=== PATIENT | female | born 1985 | race Hispanic/Latino ===

== ENCOUNTER 2022-01-03 17:15 | Emergency (ER) | payer BC, MEDICAID, OTHER ==
[~2022-01-03] VITALS: Ht 157.5 cm; Wt 70.8 kg
[2022-01-03 17:49] LABS: BASOPHILS % (AUTO) 0.2 % (0.0-5.0); EOSINOPHILS % (AUTO) 0.4 % (0.0-8.0); HEMATOCRIT 39.3 % (36-48); LYMPHOCYTES % (AUTO) 15.6 % (21.0-51.0); MEAN CORPUSCULAR HEMOGLOBIN 26.8 pg (27.0-33.0); MEAN CORPUSCULAR HGB CONC 32.1 g/dL (32.0-36.0); MEAN CORPUSCULAR VOLUME 83.4 fL (79-99); MONOCYTES % (AUTO) 5.9 % (3.0-13.0); NEUTROPHILS % (AUTO) 77.4 % (40.0-77.0); PLATELET COUNT (AUTO) 315 K/uL (130-400); RED BLOOD CELL COUNT(AUTO) 4.71 MIL/uL (4.00-5.50); RED CELL DISTRIBUTION WIDTH 13.1 % (11.0-15.5); WHITE BLOOD COUNT (AUTO) 16.6 K/uL (4.8-10.8)
[2022-01-03 17:56] LABS: APPEARANCE,URINE Cloudy (CLEAR); BILIRUBIN,URINE Negative (NEGATIVE); COLOR,URINE Yellow (YELLOW); GLUCOSE, URINE (UA) Negative (NEGATIVE); KETONES,URINE Negative (NEGATIVE); LEUKOCYTE ESTERASE ,URINE Moderate (NEGATIVE); NITRATE,URINE Negative (NEGATIVE); OCCULT BLOOD,URINE Negative (NEGATIVE); PROTEIN,URINE Trace mg/dL (NEGATIVE)
[2022-01-03] MEDS ORDERED: MORPHINE 2 MG SYG IVP ONE (18:00)
[2022-01-03] MEDS ORDERED: MAG/ALUM/SIMETH 30 ML UDCUP PO ONE ×2 (18:00)
[2022-01-03] MEDS ORDERED: FAMOTIDINE 20MG TAB PO ONE ×2 (18:00)
[2022-01-03] MEDS ORDERED: PROMETHAZINE HCL 25 MG/ML 1ML AMPULE IM ONE ×2 (18:00)
[2022-01-03] MEDS ORDERED: DICYCLOMINE HCL 10 MG/5 ML ML PO ONE ×2 (18:00)
[2022-01-03] MEDS ORDERED: 0.9%NACL 1000ML 1,000 ML IV ONE (18:00)
[2022-01-03] MEDS ORDERED: ONDANSETRON 4MG INJ IVP ONE (18:00)
[2022-01-03] MEDS ORDERED: LIDOCAINE HCL 2% VISCOUS 15 ML UDCUP PO ONE ×2 (18:00)
[2022-01-03 18:01] LABS: HCG,QUAL RESULT NEGATIVE (NEGATIVE)
[2022-01-03 18:24] LABS: ALBUMIN 4.1 g/dL (3.5-5.0); BILIRUBIN,TOTAL 0.4 mg/dL (0.2-1.0); CREATININE 0.7 mg/dL (0.5-1.5); TOTAL PROTEIN, SERUM 8.6 g/dL (6.0-8.3)
[2022-01-03 18:30] LABS: RBC,URINE 0-1 /HPF (0-1)
[2022-01-03 18:31] LABS: BACTERIA,URINE Few /HPF (None Seen); MUCUS,URINE Rare LPF (None Seen); SQUAMOUS EPITHELIAL CELL,UR Moderate /HPF (0-2)
[2022-01-03] MEDS ORDERED: DICY20TA2 PO (19:58)
[2022-01-03] MEDS ORDERED: FAMO-136 PO (19:58)
[2022-01-03 20:03] VITALS: BP 110/63
[2022-01-03 21:58] LABS: POTASSIUM 4.1 mmol/L (3.5-5.1)
== END 2022-01-03 20:09 | disposition home or self-care (01) ==
LOC: EDH 17:15
DX: K80.20 Calculus of gallbladder without cholecystitis without obstruction (principal); Z79.899 Other long term (current) drug therapy; Z98.890 Other specified postprocedural states
CPT/HCPCS: 36415; 76705; 80053; 81001; 81025; 83690; 84484; 85025; 87088; 96361; 96372; 96374; 96375; 99285; J2405; J2550; J7030

== ENCOUNTER 2022-05-16 02:15 | Emergency (ER) | payer OTHER ==
[~2022-05-16] VITALS: Ht 157.5 cm; Wt 72.6 kg
[~2022-05-16 02:15] MED LIST: DICY20TA2 PO; FAMO-136 PO
[2022-05-16] MEDS ORDERED: ONDANSETRON 4MG INJ ONE (02:40)
[2022-05-16] MEDS ORDERED: KETOROLAC 30MG VIAL (30MG/ML) ONE (02:40)
[2022-05-16] MEDS ORDERED: 0.9%NACL 1000ML 1,000 ML IV ONE ×2 (02:40→03:00)
[2022-05-16 02:45] LABS: BASOPHILS % (AUTO) 0.4 % (0.0-5.0); EOSINOPHILS % (AUTO) 1.1 % (0.0-8.0); HEMATOCRIT 32.8 % (36-48); LYMPHOCYTES % (AUTO) 29.8 % (21.0-51.0); MEAN CORPUSCULAR HEMOGLOBIN 25.9 pg (27.0-33.0); MEAN CORPUSCULAR HGB CONC 31.4 g/dL (32.0-36.0); MEAN CORPUSCULAR VOLUME 82.4 fL (79-99); MONOCYTES % (AUTO) 8.7 % (3.0-13.0); NEUTROPHILS % (AUTO) 59.6 % (40.0-77.0); PLATELET COUNT (AUTO) 294 K/uL (130-400); RED BLOOD CELL COUNT(AUTO) 3.98 MIL/uL (4.00-5.50); RED CELL DISTRIBUTION WIDTH 13.4 % (11.0-15.5); WHITE BLOOD COUNT (AUTO) 11.3 K/uL (4.8-10.8)
[2022-05-16 02:54] LABS: APPEARANCE,URINE CLEAR (CLEAR); BILIRUBIN,URINE NEGATIVE (NEGATIVE); GLUCOSE, URINE (UA) NEGATIVE (NEGATIVE); KETONES,URINE NEGATIVE (NEGATIVE); LEUKOCYTE ESTERASE ,URINE 75 Leu/uL (NEGATIVE); NITRATE,URINE NEGATIVE (NEGATIVE); OCCULT BLOOD,URINE SMALL (NEGATIVE); PROTEIN,URINE NEGATIVE (NEGATIVE); UROBILINOGEN,URINE 0.2 mg/dL (0.2-1.0)
[2022-05-16 02:56] LABS: COLOR,URINE YELLOW (YELLOW); HCG,QUALITATIVE URINE NEGATIVE (NEGATIVE)
[2022-05-16 02:58] LABS: ALBUMIN 3.3 g/dL (3.5-5.0); CREATININE 0.7 mg/dL (0.5-1.5); POTASSIUM 4.1 mmol/L (3.5-5.1)
[2022-05-16] MEDS ORDERED: ONDANSETRON 4MG INJ IVP ONE (03:00)
[2022-05-16] MEDS ORDERED: KETOROLAC 30MG VIAL (30MG/ML) IVP ONE (03:00)
[2022-05-16 03:05] LABS: BACTERIA,URINE RARE /HPF (None Seen); MUCUS,URINE RARE LPF (None Seen); SQUAMOUS EPITHELIAL CELL,UR MOD /HPF (0-2)
[2022-05-16 03:49] VITALS: BP 131/72
[2022-05-16] MEDS ORDERED: DICY20TA2 PO (04:17)
== END 2022-05-16 04:25 | disposition home or self-care (01) ==
LOC: EDH 02:15
DX: K80.20 Calculus of gallbladder without cholecystitis without obstruction (principal); Z79.899 Other long term (current) drug therapy; Z98.890 Other specified postprocedural states
CPT/HCPCS: 99284; 96374; 76705; 96361; 96375; 80053; 83690; 85025; 87088; 81001; 81025; 36415; J7030; J2405; J1885

== ENCOUNTER 2022-05-27 07:28 | Day surgery (SDC) | payer OTHER ==
[2022-05-23 14:40] LABS: BASOPHILS % (AUTO) 0.5 % (0.0-5.0); EOSINOPHILS % (AUTO) 1.2 % (0.0-8.0); HEMATOCRIT 35.5 % (36-48); LYMPHOCYTES % (AUTO) 31.5 % (21.0-51.0); MEAN CORPUSCULAR HEMOGLOBIN 26.3 pg (27.0-33.0); MEAN CORPUSCULAR HGB CONC 31.5 g/dL (32.0-36.0); MEAN CORPUSCULAR VOLUME 83.3 fL (79-99); MONOCYTES % (AUTO) 8.6 % (3.0-13.0); NEUTROPHILS % (AUTO) 57.9 % (40.0-77.0); PLATELET COUNT (AUTO) 288 K/uL (130-400); RED BLOOD CELL COUNT(AUTO) 4.26 MIL/uL (4.00-5.50); RED CELL DISTRIBUTION WIDTH 13.6 % (11.0-15.5); WHITE BLOOD COUNT (AUTO) 8.6 K/uL (4.8-10.8)
[2022-05-23 15:00] LABS: ALBUMIN 3.7 g/dL (3.5-5.0); CREATININE 0.7 mg/dL (0.5-1.5); TOTAL PROTEIN, SERUM 7.7 g/dL (6.0-8.3)
[2022-05-26 08:45] VITALS: BP 120/71
[2022-05-27] VITALS (16 sets, daily range): BP systolic 111–145; BP diastolic 56–80
[~2022-05-27] VITALS: Ht 157.5 cm; Wt 73.9 kg
[~2022-05-27 07:28] MED LIST changes: +BUPIVACAINE/PF 0.25% 30ML VIAL IJ ONE; +BUPIVACAINE/PF 0.5% 30ML VIAL ONE; -FAMO-136 PO
[2022-05-27] MEDS: CEFAZOLIN SODIUM 1 GM VIAL IVP SCH ×2 (08:00→10:35)
[2022-05-27] MEDS ORDERED: LACTATED RINGERS 1000ML 1,000 ML IV ONE (08:22)
[2022-05-27] MEDS ORDERED: PROPOFOL 10 MG/ML 20ML VIAL IV ONE (09:22)
[2022-05-27] MEDS ORDERED: LIDOCAINE PF 100MG/5ML (2%) SYRINGE 5ML ONE (09:22)
[2022-05-27] MEDS ORDERED: EPHEDRINE SULFATE 50 MG/ML AMPULE ONE (09:22)
[2022-05-27] MEDS ORDERED: MIDAZOLAM HCL 1 MG/ML 2ML VIAL ONE (09:26)
[2022-05-27] MEDS ORDERED: FENTANYL CITRATE PF 50 MCG/1 ML 2ML VIAL ONE ×2 (09:26→11:37)
[2022-05-27] MEDS ORDERED: DEXAMETHASONE SOD PHOSPHATE 4 MG/ML 1ML VIAL ONE ×2 (10:37→10:38)
[2022-05-27] MEDS ORDERED: KETOROLAC 30MG VIAL (30MG/ML) ONE ×2 (10:37→10:40)
[2022-05-27] MEDS ORDERED: ONDANSETRON 4MG INJ ONE (10:38)
[2022-05-27] MEDS ORDERED: GLYCOPYRROLATE 1 MG/5 ML SYRINGE ONE (10:50)
[2022-05-27] MEDS ORDERED: NEOSTIGMINE 5MG/5ML SYR IV ONE (10:50)
[2022-05-27] MEDS ORDERED: MEPERIDINE-PF 25 MG/ML SYG ONE ×2 (11:18→11:26)
== END 2022-05-27 12:15 | disposition home or self-care (01) ==
LOC: DAH 07:28
PROVIDERS: ATTEND Student in an Organized Health Care Education/Training Program
DX: K80.10 Calculus of gallbladder with chronic cholecystitis without obstruction (principal); Z20.822 Contact with and (suspected) exposure to COVID-19; Z98.51 Tubal ligation status; Z98.890 Other specified postprocedural states
CPT/HCPCS: 71045; 87426; 80053; 84703; 85025; 36415; 47562; 81025; A6260; J1100 ×2; A6207; J7030; J7120; J3010 ×2; J0690; J3490 ×2; J2710; J2001; J2250; J2704; J2405; J1885; J2175 ×2; A6206; C1769 ×3; A4649 ×2; A4215; A4223; A4222; A4221; A4663; A4335; A4600